=== PATIENT | female | born 1985 | race Two or more races ===

== ENCOUNTER → 2017-11-12 | Outpatient (CLI) | payer OTHER | LOC: M RAD 17:28 | DX: D25.9 Leiomyoma of uterus, unspecified (principal) | CPT/HCPCS: 76856 ==

== ENCOUNTER → 2018-07-02 | Outpatient (CLI) | payer OTHER ==
[~2018-07-02] MED LIST: ISOVUE-370 76% 100ML VIAL (Q9967) As Ordered
== END ==
LOC: M RADPRO 13:13
DX: N97.9 Female infertility, unspecified (principal)
CPT/HCPCS: 58340